=== PATIENT | female | born 1945 | race Hispanic/Latino ===

== ENCOUNTER → 2020-09-30 | Day surgery (SDC) | payer OTHER ==
[2020-09-29 13:48] LABS: BASOPHILS % 0.3 % (0.0-1.0); EOSINOPHILS # (AUTO) 0.2 (0.0-0.4); HEMOGLOBIN 11.1 g/dL (12.0-16.0); LYMPHOCYTES # (AUTO) 2.2 (1.0-3.2); LYMPHOCYTES % 28.5 % (18.0-39.1); MEAN CORPUSCULAR HEMOGLOBIN 26.9 pg (28-32); MEAN CORPUSCULAR HGB CONC 31.7 g/dL (31-35); MEAN CORPUSCULAR VOLUME 84.7 fL (81-99); MONOCYTES # (AUTO) 0.6 (0.2-0.8); MONOCYTES % 7.2 % (4.4-11.3); NEUTROPHILS # (AUTO) 4.7 (2.1-6.9); NEUTROPHILS % 61.5 % (38.7-80.0); PLATELET COUNT 197 x10e3/uL (140-360); RED BLOOD COUNT 4.13 x10e6/uL (3.6-5.1); RED CELL DISTRIBUTION WIDTH 14.6 % (11.7-14.4)
[2020-09-29 14:05] LABS: ALBUMIN 3.4 g/dL (3.5-5.0); CALCIUM 9.9 mg/dL (8.4-10.2); CREATININE, SERUM 0.7 mg/dL (0.57-1.11)
[~2020-09-30] MED LIST: ARMOUR THYROID60 MG PO; CELEBREX100 MG PO; DEXAMETHASONE SOD PHOS INJ 4 MG/ML VIAL ONE; FENTANYL CITRATE/PF 100MCG/2 ML INJ ONE; HYDROMORPHONE 1MG/1ML INJ ONE; LEVOCETIRIZINE D5 MG PO; LEVOTHYROXINE50 MCG PO; LIDOCAINE HCL 2% LOCAL INJ 5 ML SDV VIAL INJ ONE; LIPITOR10 MG PO; LOSARTAN-HCTZ1 EACH PO; MIDAZOLAM HCL 2 MG/2 ML VIAL ONE; ONDANSETRON HCL INJ 2MG/ML 2ML 2 MG/ML VIAL ONE; ORENCIA125 MG/1 M INJ; POVIDONE IODINE 0.05% 0.05 % ML PO ONE; PROPOFOL IV EMULSION 10 MG/ML 20 ML VIAL ONE; SEVOFLURANE INHAL SOLN 250 ML PEN BTL ONE; TRAZODONE HCL100 MG PO; ULTRAM 50MG50 MG PO; [UNRECOGNIZED DRUG - OTHER] PO
[2020-09-30 17:40] VITALS: BP 119/67
== END | disposition home or self-care (01) ==
LOC: OR 07:00
PROVIDERS: ATTEND Surgery
DX: R22.41 Localized swelling, mass and lump, right lower limb (principal); I10 Essential (primary) hypertension; Z01.810 Encounter for preprocedural cardiovascular examination; Z01.812 Encounter for preprocedural laboratory examination; Z01.818 Encounter for other preprocedural examination
CPT/HCPCS: 36415; 71046; 80053; 85025; 88304; 88312; 93005; J1100; J1170; J2001; J2250; J2405; J3010

== ENCOUNTER 2021-12-13 20:01 | Emergency (ER) | payer OTHER ==
[~2021-12-13] VITALS: Ht 152.4 cm; Wt 68.0 kg
[~2021-12-13 20:01] MED LIST changes: -DEXAMETHASONE SOD PHOS INJ 4 MG/ML VIAL ONE; -FENTANYL CITRATE/PF 100MCG/2 ML INJ ONE; -HYDROMORPHONE 1MG/1ML INJ ONE; -LIDOCAINE HCL 2% LOCAL INJ 5 ML SDV VIAL INJ ONE; -MIDAZOLAM HCL 2 MG/2 ML VIAL ONE; -ONDANSETRON HCL INJ 2MG/ML 2ML 2 MG/ML VIAL ONE; -POVIDONE IODINE 0.05% 0.05 % ML PO ONE; -PROPOFOL IV EMULSION 10 MG/ML 20 ML VIAL ONE; -SEVOFLURANE INHAL SOLN 250 ML PEN BTL ONE
[2021-12-13] MEDS ORDERED: ONDANSETRON HCL INJ 2MG/ML 2ML 2 MG/ML VIAL IV STA (20:25)
[2021-12-13] MEDS ORDERED: Morphine 4mg INJECTION 4 MG/ML INJ IV STA (20:25)
[2021-12-13] MEDS ORDERED: SODIUM CHLORIDE 0.9% 1000ML 1,000 ML IV STA (20:25)
[2021-12-13 20:39] LABS: BASOPHILS % 0.3 % (0.0-1.0); EOSINOPHILS # (AUTO) 0.1 (0.0-0.4); EOSINOPHILS % 1.2 % (0.0-6.0); HEMATOCRIT 41.5 % (34.2-44.1); HEMOGLOBIN 13.7 g/dL (12.0-16.0); LYMPHOCYTES % 16.5 % (18.0-39.1); MEAN CORPUSCULAR HEMOGLOBIN 28.4 pg (28-32); MEAN CORPUSCULAR VOLUME 86.1 fL (81-99); MONOCYTES % 8.7 % (4.4-11.3); NEUTROPHILS # (AUTO) 8.7 (2.1-6.9); NEUTROPHILS % 72.9 % (38.7-80.0); PLATELET COUNT 247 x10e3/uL (140-360); RED BLOOD COUNT 4.82 x10e6/uL (3.6-5.1); RED CELL DISTRIBUTION WIDTH 13.9 % (11.7-14.4)
[2021-12-13 20:54] LABS: ALBUMIN 3.4 g/dL (3.5-5.0); ALBUMIN/GLOBULIN RATIO 0.7 (0.8-2.0); ANION GAP 17.2 mmol/L (8-16); CALCIUM 9.6 mg/dL (8.4-10.2); CREATININE, SERUM 0.86 mg/dL (0.57-1.11); POTASSIUM 3.2 mmol/L (3.5-5.1)
[2021-12-13] MEDS ORDERED: DIATRIZOATE MEGL/DIATRIZOA SOD 30 ML BTL PO ONE (20:56)
[2021-12-13 21:02] LABS: CREATINE KINASE MB 0.1 ng/mL (0-5.0)
[2021-12-13] MEDS ORDERED: IOPAMIDOL 370 MG/ML 100 ML INFUS..BTL INJ ONE (21:56)
[2021-12-13] MEDS ORDERED: AUGMENTIN 500-1 EACH PO (22:28)
[2021-12-14] MEDS ORDERED: IOPAMIDOL 370 MG/ML 100 ML INFUS..BTL INJ ONE (07:15)
== END 2021-12-13 22:45 | disposition home or self-care (01) ==
LOC: ER 20:25
DX: R50.9 Fever, unspecified (principal); J18.9 Pneumonia, unspecified organism; K57.90 Diverticulosis of intestine, part unspecified, without perforation or abscess without bleeding; R10.12 Left upper quadrant pain; N28.1 Cyst of kidney, acquired; R94.31 Abnormal electrocardiogram [ECG] [EKG]
CPT/HCPCS: 0223U; 36415; 71045; 74177; 80053; 82550; 82553; 83690; 84484; 85025; 93005; 99284; J2270; J2405; J7030; Q9963; Q9967

== ENCOUNTER 2021-12-18 09:44 | Inpatient (IN) | payer OTHER ==
[~2021-12-18] VITALS: Ht 152.4 cm; Wt 68.0 kg
[~2021-12-18 09:44] MED LIST changes: +AUGMENTIN 500-1 EACH PO
[2021-12-18 10:35] LABS: BASOPHILS % 0.2 % (0.0-1.0); EOSINOPHILS # (AUTO) 0.1 (0.0-0.4); EOSINOPHILS % 0.7 % (0.0-6.0); HEMATOCRIT 39.7 % (34.2-44.1); HEMOGLOBIN 12.8 g/dL (12.0-16.0); LYMPHOCYTES # (AUTO) 1.1 (1.0-3.2); LYMPHOCYTES % 8.3 % (18.0-39.1); MEAN CORPUSCULAR HEMOGLOBIN 27.8 pg (28-32); MEAN CORPUSCULAR HGB CONC 32.2 g/dL (31-35); MEAN CORPUSCULAR VOLUME 86.3 fL (81-99); MONOCYTES # (AUTO) 0.8 (0.2-0.8); MONOCYTES % 6.5 % (4.4-11.3); NEUTROPHILS # (AUTO) 10.6 (2.1-6.9); NEUTROPHILS % 83.3 % (38.7-80.0); PLATELET COUNT 269 x10e3/uL (140-360); RED CELL DISTRIBUTION WIDTH 13.5 % (11.7-14.4)
[2021-12-18 10:58] LABS: INR 0.97; PROTHROMBIN TIME 13.8 seconds (11.9-14.5)
[2021-12-18 10:59] LABS: PARTIAL THROMBOPLASTIN TIME 40.4 seconds (23.8-35.5)
[2021-12-18 11:08] LABS: ALBUMIN 3.1 g/dL (3.5-5.0); ALBUMIN/GLOBULIN RATIO 0.7 (0.8-2.0); ANION GAP 13.9 mmol/L (8-16); CALCIUM 9.5 mg/dL (8.4-10.2); CREATININE, SERUM 0.75 mg/dL (0.57-1.11)
[2021-12-18 11:09] LABS: POTASSIUM 2.9 mmol/L (3.5-5.1)
[2021-12-18] MEDS ORDERED: Doxycycline IV 100 MG in SODIUM CHLORIDE 0.9% 100 ML IV STA (12:12)
[2021-12-18] MEDS ORDERED: LACTATED RINGER'S 1,000 ML INJ ONE (12:15)
[2021-12-18] MEDS ORDERED: SODIUM CHLORIDE 0.9% 500ML 500 ML IV STA (12:17)
[2021-12-18] MEDS ORDERED: SODIUM CHLORIDE 0.9% 1000ML 1,000 ML IV SCH (12:30)
[2021-12-18] MEDS ORDERED: POTASSIUM CHLORIDE 20 MEQ TAB CR PO ONE (12:45)
[2021-12-18] MEDS ORDERED: ACETAMINOPHEN 325 MG TAB PO PRN (18:45)
[2021-12-18] MEDS ORDERED: TRAMADOL HCL 50 MG TAB PO PRN (18:45)
[2021-12-18] MEDS ORDERED: ONDANSETRON HCL INJ 2MG/ML 2ML 2 MG/ML VIAL IV PRN (18:45)
[2021-12-18] MEDS: TRAZODONE HCL 50 MG TAB PO SCH ×2 (20:09→22:10)
[2021-12-18] MEDS: METRONIDAZOLE 500MG/NS 100ML 100 ML IV SCH (20:09)
[2021-12-18] MEDS: VANCOMYCIN HCL 125 MG CAPSULE PO SCH ×2 (20:09→23:58)
[2021-12-18] MEDS: KCL 40MEQ/0.9% SOD CHL 1,000 ML IV SCH (22:57)
[2021-12-18 23:16] VITALS: BP 132/88
[2021-12-18 23:19] VITALS: BP_SYST 132; BP_DIAS 66; BP_DIAS 88
[2021-12-19 05:16] LABS: BASOPHILS % 0.3 % (0.0-1.0); EOSINOPHILS # (AUTO) 0.2 (0.0-0.4); EOSINOPHILS % 1.6 % (0.0-6.0); HEMATOCRIT 37.7 % (34.2-44.1); HEMOGLOBIN 11.9 g/dL (12.0-16.0); LYMPHOCYTES % 21.2 % (18.0-39.1); MEAN CORPUSCULAR HGB CONC 31.6 g/dL (31-35); MEAN CORPUSCULAR VOLUME 88.7 fL (81-99); MONOCYTES # (AUTO) 0.7 (0.2-0.8); MONOCYTES % 7.4 % (4.4-11.3); NEUTROPHILS # (AUTO) 6.6 (2.1-6.9); NEUTROPHILS % 68.2 % (38.7-80.0); PLATELET COUNT 232 x10e3/uL (140-360); RED BLOOD COUNT 4.25 x10e6/uL (3.6-5.1); RED CELL DISTRIBUTION WIDTH 13.7 % (11.7-14.4)
[2021-12-19] MEDS: VANCOMYCIN HCL 125 MG CAPSULE PO SCH ×4 (05:36→22:50)
[2021-12-19] MEDS: LEVOTHYROXINE SODIUM 25 MCG TABLET PO SCH (05:36)
[2021-12-19 05:37] LABS: ANION GAP 13.7 mmol/L (8-16); CALCIUM 8.9 mg/dL (8.4-10.2); CREATININE, SERUM 0.73 mg/dL (0.57-1.11); POTASSIUM 3.7 mmol/L (3.5-5.1)
[2021-12-19] MEDS: THYROID 60 MG TAB PO SCH (05:38)
[2021-12-19] MEDS: KCL 40MEQ/0.9% SOD CHL 1,000 ML IV SCH (05:39)
[2021-12-19] MEDS: METRONIDAZOLE 500MG/NS 100ML 100 ML IV SCH ×3 (05:44→21:47)
[2021-12-19 06:04] LABS: MAGNESIUM 1.6 MG/DL (1.3-2.1); PHOSPHORUS 2.5 MG/DL (2.3-4.7)
[2021-12-19 06:12] LABS: THYROID STIMULATING HORMONE 1.859 uIU/mL (0.350-4.940)
[2021-12-19 06:15] VITALS: BP 131/75
[2021-12-19 08:28] VITALS: BP 142/78
[2021-12-19 08:31] VITALS: BP 142/78
[2021-12-19] MEDS: SOD CHL 0.45%/POT CHL 20MEQ 1,000 ML IV SCH (10:35)
[2021-12-19 12:46] VITALS: BP 163/83
[2021-12-19] MEDS ORDERED: POTASSIUM CHL 40 MEQ in SODIUM CHLORIDE 0.9% 1000ML 1,000 ML IV SCH (16:00)
[2021-12-19 16:41] VITALS: BP 141/75
[2021-12-19 20:00] VITALS: BP 159/82
[2021-12-19] MEDS: TRAZODONE HCL 50 MG TAB PO SCH (22:54)
[2021-12-20] VITALS (7 sets, daily range): BP systolic 117–163; BP diastolic 76–93
[2021-12-20] MEDS: SOD CHL 0.45%/POT CHL 20MEQ 1,000 ML IV SCH ×2 (04:47→05:22)
[2021-12-20] MEDS: LEVOTHYROXINE SODIUM 25 MCG TABLET PO SCH (05:22)
[2021-12-20] MEDS: VANCOMYCIN HCL 125 MG CAPSULE PO SCH ×2 (05:22→11:26)
[2021-12-20] MEDS: METRONIDAZOLE 500MG/NS 100ML 100 ML IV SCH ×2 (05:22→11:26)
[2021-12-20] MEDS: THYROID 60 MG TAB PO SCH (05:22)
[2021-12-20 06:22] LABS: ANION GAP 12.5 mmol/L (8-16); CALCIUM 8.3 mg/dL (8.4-10.2); CREATININE, SERUM 0.74 mg/dL (0.57-1.11); POTASSIUM 3.5 mmol/L (3.5-5.1)
[2021-12-20 06:55] LABS: BASOPHILS % 0.3 % (0.0-1.0); EOSINOPHILS # (AUTO) 0.1 (0.0-0.4); EOSINOPHILS % 1.2 % (0.0-6.0); HEMATOCRIT 33.4 % (34.2-44.1); HEMOGLOBIN 10.6 g/dL (12.0-16.0); LYMPHOCYTES # (AUTO) 1.6 (1.0-3.2); MEAN CORPUSCULAR HGB CONC 31.7 g/dL (31-35); MEAN CORPUSCULAR VOLUME 88.1 fL (81-99); MONOCYTES # (AUTO) 0.7 (0.2-0.8); NEUTROPHILS # (AUTO) 6.7 (2.1-6.9); NEUTROPHILS % 72.5 % (38.7-80.0); PLATELET COUNT 223 x10e3/uL (140-360); RED BLOOD COUNT 3.79 x10e6/uL (3.6-5.1); RED CELL DISTRIBUTION WIDTH 13.6 % (11.7-14.4)
[2021-12-20] MEDS ORDERED: LOSARTAN POTASSIUM 100 MG TAB PO ONE (09:15)
== END 2021-12-20 17:30 | disposition home or self-care (01) | DRG 871 ==
LOC: ER 09:59 → ERHOLD 12:19 → MED/SURG2 17:12 → OBSVTOIN 18:43
PROVIDERS: ADMIT Internal Medicine; ATTEND Internal Medicine
DX: A41.9 Sepsis, unspecified organism (principal); J18.9 Pneumonia, unspecified organism; E87.1 Hypo-osmolality and hyponatremia; I10 Essential (primary) hypertension; E03.9 Hypothyroidism, unspecified; E78.5 Hyperlipidemia, unspecified; K52.9 Noninfective gastroenteritis and colitis, unspecified; E86.0 Dehydration; E87.6 Hypokalemia; Z20.822 Contact with and (suspected) exposure to COVID-19
CPT/HCPCS: 36415; 71045; 71250; 80048; 80053; 83605; 83735; 84100; 84443; 84484; 85025; 85610; 85730; 87040; 93005; 94799; 99285; J0696; J2405; J3480; J7030; J7050; J7121

== ENCOUNTER → 2022-01-19 | Outpatient (CLI) | payer OTHER | LOC: RAD 11:22 | PROVIDERS: ATTEND Internal Medicine | DX: R05.1 Acute cough (principal) | CPT/HCPCS: 71046 ==

== ENCOUNTER → 2022-03-15 | Day surgery (SDC) | payer OTHER ==
[2022-03-09 11:09] LABS: BASOPHILS % 0.3 % (0.0-1.0); EOSINOPHILS # (AUTO) 0.1 (0.0-0.4); EOSINOPHILS % 1.6 % (0.0-6.0); HEMATOCRIT 43.3 % (34.2-44.1); HEMOGLOBIN 12.9 g/dL (12.0-16.0); LYMPHOCYTES # (AUTO) 1.6 (1.0-3.2); LYMPHOCYTES % 21.2 % (18.0-39.1); MEAN CORPUSCULAR HEMOGLOBIN 26.8 pg (28-32); MEAN CORPUSCULAR HGB CONC 29.8 g/dL (31-35); MONOCYTES # (AUTO) 0.5 (0.2-0.8); NEUTROPHILS # (AUTO) 5.4 (2.1-6.9); NEUTROPHILS % 70.1 % (38.7-80.0); PLATELET COUNT 236 x10e3/uL (140-360); RED BLOOD COUNT 4.81 x10e6/uL (3.6-5.1); RED CELL DISTRIBUTION WIDTH 13.8 % (11.7-14.4)
[~2022-03-15] MED LIST changes: +LIDOCAINE HCL 2% LOCAL INJ 5 ML SDV VIAL INJ ONE; +PROPOFOL IV EMULSION 10 MG/ML 20 ML VIAL ONE; +SIMETHICONE 40 MG/0.6 ML BTL ONE
[2022-03-15 07:45] VITALS: BP 168/72
== END | disposition home or self-care (01) ==
LOC: OR 05:26
PROVIDERS: ATTEND Internal Medicine Gastroenterology
DX: K57.32 Diverticulitis of large intestine without perforation or abscess without bleeding (principal); K29.50 Unspecified chronic gastritis without bleeding; K44.9 Diaphragmatic hernia without obstruction or gangrene; K64.8 Other hemorrhoids; K86.1 Other chronic pancreatitis; G47.33 Obstructive sleep apnea (adult) (pediatric); E66.3 Overweight; I10 Essential (primary) hypertension; E78.5 Hyperlipidemia, unspecified; E03.9 Hypothyroidism, unspecified; M19.90 Unspecified osteoarthritis, unspecified site; Z01.810 Encounter for preprocedural cardiovascular examination; Z01.812 Encounter for preprocedural laboratory examination; Z68.28 Body mass index [BMI] 28.0-28.9, adult
CPT/HCPCS: 36415; 43239; 45378; 85025; 88305; 88312; 88342; 93005; J2001